=== PATIENT | female | born 1990 | race African-American/Black ===

== ENCOUNTER 2021-01-22 01:06 | Emergency (ER) | payer OTHER ==
[2021-01-22 01:37] VITALS: BP 136/79; PULSE 85; RESP 20; TEMP 99.2
--- NOTE | 2021-01-22 01:52 | ED ---
General Adult HPI - General Chief complaint: Recheck/Abnormal Lab/Rx Stated complaint: Covid test Time Seen by Provider: 01/22/21 01:13 Source: patient Mode of arrival: ambulatory Limitations: no limitations - History of Present Illness Initial comments: Patient is here for code at 19 test for purpose of crusting border. Denies having any symptoms. Declines medical screening exam. - Related Data Allergies Allergy/AdvReac Type Severity Reaction Status Date / Time No Known Allergies Allergy Verified 01/22/21 01:36 Review of Systems ROS Statement: Those systems with pertinent positive or pertinent negative responses have been documented in the HPI. ROS Other: All systems not noted in ROS Statement are negative. Past Medical History Past Medical History: No Reported History History of Any Multi-Drug Resistant Organisms: None Reported Past Surgical History: No Surgical Hx Reported Past Psychological History: No Psychological Hx Reported Smoking Status: Never smoker Past Alcohol Use History: None Reported Past Drug Use History: None Reported General Exam Limitations: no limitations Course Vital Signs 01/22/21 01:34 Temperature 99.2 F Pulse Rate 85 Respiratory 20 Rate Blood Pressure 136/79 O2 Sat by Pulse 96 Oximetry Disposition Clinical Impression: Encounter for laboratory testing for COVID-19 virus Disposition: HOME SELF-CARE Condition: Good Is patient prescribed a controlled substance at d/c from ED?: No Referrals: None,Stated [Primary Care Provider] - 1-2 days
== END 2021-01-22 02:53 | disposition home or self-care (01) ==
LOC: EC 01:06
DX: Z20.822 Contact with and (suspected) exposure to COVID-19 (principal)
CPT/HCPCS: 87635; 99282